=== PATIENT | male | born 1995 | race Hispanic/Latino ===

== ENCOUNTER 2018-05-16 03:35 | Emergency (ER) | payer OTHER ==
[2018-05-16 03:45] VITALS: RESP 16; O2SAT 100
--- NOTE | 2018-05-16 04:04 | ED PDOC ---
HPI: Psych/Substance Abuse Time Seen by Provider: 05/16/18 03:37 Chief Complaint (Nursing): Alcohol Ingestion Chief Complaint (Provider): etoh History Per: Patient, EMS Additional Complaint(s): 22 yo male brought in by EMS for evaluated of alcohol intoxication. Patient admits to drinking tonight, states he was brought here because he was "moaning" outside. Patient denies suicidal/homicidal ideations, acute physical complaints. Past Medical History Reviewed: Historical Data, Nursing Documentation, Vital Signs Vital Signs: Last Vital Signs Temp 97.5 F L 05/16/18 03:42 Pulse 64 05/16/18 03:42 Resp 16 05/16/18 03:42 BP 137/93 H 05/16/18 03:42 Pulse Ox 100 05/16/18 03:42 - Medical History PMH: No Chronic Diseases - Surgical History Surgical History: No Surg Hx - Family History Family History: States: No Known Family Hx - Allergies Allergies/Adverse Reactions: Allergies Allergy/AdvReac Type Severity Reaction Status Date / Time No Known Allergies Allergy Verified 05/16/18 03:45 Review of Systems ROS Statement: Except As Marked, All Systems Reviewed And Found Negative Physical Exam - Reviewed Nursing Documentation Reviewed: Yes Vital Signs Reviewed: Yes - Physical Exam Appears: Positive for: Well, Non-toxic, No Acute Distress (intoxicated; slurred speech, +AOB) Head Exam: Positive for: ATRAUMATIC, NORMAL INSPECTION, NORMOCEPHALIC Skin: Positive for: Normal Color ENT: Positive for: Normal ENT Inspection Cardiovascular/Chest: Positive for: Regular Rate, Rhythm Respiratory: Positive for: Normal Breath Sounds Gastrointestinal/Abdominal: Positive for: Normal Exam Extremity: Positive for: Normal ROM Neurologic/Psych: Positive for: Alert, Oriented (x3) - ECG O2 Sat by Pulse Oximetry: 100 - Progress ED Course And Treament: accucheck 6:00 Patient awake, alert, oriented x3. Ambulating steady gait Stable for discharge Disposition - Clinical Impression Clinical Impression: Acute alcohol intoxication - Patient ED Disposition Is Patient to be Admitted: No Counseled Patient/Family Regarding: Studies Performed, Diagnosis, Need For Followup - Disposition Disposition: Routine/Home Disposition Time: 06:00 Condition: STABLE Instructions: Alcohol Use - When Is Drinking a Problem?
[2018-05-16 08:54] VITALS: BP 122/81; PULSE 67; TEMP 98.7
== END 2018-05-16 08:08 | disposition home or self-care (01) ==
LOC: H.ER 03:35
DX: F10.129 Alcohol abuse with intoxication, unspecified (principal)